=== PATIENT | male | born 1975 | race Caucasian/White ===

== ENCOUNTER 2020-11-29 15:58 | Emergency (ER) | payer BC, SELFPAY ==
--- OUTSIDE RECORDS SUMMARY | 2020-11-29 16:01 | XMS REPORT | Continuity of Care Document ---
:1975 Author Organization [facility] t Address [address] [place] [address] Care Team Providers Name Role Phone Yahaira MENDEZ Attending Clinician Unavailable Bandar MORRIS Admitting Clinician Unavailable Problems Condition Condition Condition Status Onset Resolution Last Treating Co mments Source Name Details Category Date Date Treatment Clinician Date Peritonsil Peritonsil Disease Active 2019-[address] [facility] 00 [place] Throat Throat Disease Active 2019-[address] [facility] pain pain [facility]08 [facility] 00 [place] Fever Fever Disease Active 2020-[address] [facility] [address] [facility] - 00:[facility]: [facility] 00 [place] Allergies, Adverse Reactions, Alerts This patient has no known allergies or adverse reactions. Social History Social Habit Start Date Stop Date Quantity Comments Source Sex Assigned At [facility] History of tobacco Cigarette Smoker [facility] Cigarettes smoked 2019-07-31 2019-07-[address] [facility] - current (pack per 00:00:00 00:00:00 [facility] Center day) - Reported Cigarette 2019-07-31 2019-07-[address] [facility] - pack-years 00:00:00 00:00:00 [facility] Tobacco use and 2019-07-31 2019-07-[address] [facility] Carisa kes - exposure 00:00:00 00:00:00 [facility] Alcohol intake 2019-07-31 2019-07-31 [facility] History SDOH 2019-07-30 2019-07-[address] [facility] - Alcohol Std Drinks 00:00:00 00:00:00 [facility] Center History [facility] 2019-07-30 2019-07-[address] [facility] - Alcohol Binge 00:00:00 00:00:[address] [facility] 2019-07-30 2019-07-[address] [facility] - Alcohol Frequency 00:00:00 00:00:00 [facility] Center Smoking Status Start Date Stop Date Source Current every day smoker 2019-07-31 00:00:[address] [facility] - [facility] Medications This patient has no known medications. Immunizations Ordered Immunization Filled Immunization Date Status Commen ts Source Name Name Influenza Four-QIV 2019-07-[address] [facility] - PF 3YR+ 00:00:00 [facility] Procedures This patient has no known procedures. Plan of Care Planned Activity Planned Date Details Comments Source Future Scheduled 2020-03-23 INFLUENZA VACCINE (#1) [facility] Test 00:00:00 [code = INFLUENZA Medical Ce nter VACCINE (#1)] Future Scheduled [address] [facility] Test 00:00:00 (procedure) [code = [facility] [id number]] Future Scheduled [address] [facility] - Test 00:00:00 0-64 YRS (1 of 1 - Medical C enter PPSV23) [code = PNEUMOCOCCAL VACCINE 0-64 YRS (1 of 1 - PPSV23)] Results Test Description Test Time Test Comments Results Result Comments Source TISSUE EXAM 2019-08-05 Surgical Pathology 17:51:00 Report Case: [id number] Authorizing Provider: Saman Gibbs Collected: 07/31/2019939 MD Narayan Ordering Location: [facility] Received: 07/31/2019 0945 SERVICES Pathologist: Phill Hills MD Specimens: A) - Tonsil, Right, right tonsil B) - Tooth, left medial incisor A. TONSIL, RIGHT, EXCISIONAL BIOPSY:- REACTIVE LYMPHOID HYPERPLASIA WITH FOCAL CRYPTITIS- NO MALIGNANCY IDENTIFIED (SEE COMMENT)- CONCURRENT FLOW STUDIES ([id number] [id number]) SHOW NO ABERRANT T LYMPHOCYTE POPULATION OR MONOTYPIC B LYMPHOCYTE POPULATIONB. ORAL CAVITY, LEFT, TOOTH: - INTACT INCISOR IDENTIFIED (GROSS IDENTIFICATION ONLY) Signing Pathologist Direct Phone Line: [phone] arturo signed by Phill Hills MD on 08/05/2019 at 5:51 PMClinical correlation is recommended.[id number], [id number] mass A. Right tonsil. B. Tooth, left medial incisorA. Received fresh for frozen section examination labeled with the same patient's information and "right tonsil" is a 1.2 gm, 2.2 x 1.7 x 0.5 cm portion of tonsil. The external surface is pink-guerrero and intact. One side shows a wrinkled lobulated unremarkable surface. Touch preparations were performed and a portion of specimen was sent for flow cytometry and the remaining specimen is submitted entirely for permanent microscopic examination in one cassette (A1). MH/plB. Received fresh labeled with the patient's name, accession number and "tooth" is an intact yellow-guerrero incisor measuring 1.7 x 0.6 x 0.4 cm. A gross photograph is taken. No sections are submitted - gross only. CG/ew Performed.[facility], Department of Pathology, [address] [place] [address], [facility], [facility], [address] [place] [address], [facility], [facility], [address] [place] [address], BLOOD CULTURE 2019-08-04 14:00:00 Test Item Value Reference Range Interpretation Comme nts CULTURE (BEAKER) (test code = 1095) No growth in 5 days BLOOD [id number] 14:00:00 Test Item Value Reference Range Interpretation Comments CULTURE (BEAKER) (test No growth in 5 days code = 1095) FLOW CYTOMETRY [id number] 21:41:00 Test Item Value Reference Range Interpretation Comments FLOW CYTOMETRY RESULT See Separate Report POINTER (BEAKER) (test code = 2758) FLOW CYTOMETRY AP CASE # [id number] (BEAKER) (test code = 2759) FLOW [id number] 16:32:00Flow Cytometry Report Case: [id number] Authorizing Provider: Saman Gibbs Collected: 07/31/2019 0940 MD Narayan OrderingLocation: [facility] PERIOPERATIVE Received: 07/31/2019 1055 SERVICES Pathologist: Zachery Arango MD Specimen: Other TONSIL, TONSILLECTOMY, FLOW CYTOMETRY:- NO ABERRANT T LYMPHOCYTE POPULATION-NO MONOTYPIC B LYMPHOCYTE POPULATION [id number] year old man with no significant PMH p/w 3 days of sore throat and fevers associated with a R sided peritonsillar abscess TonsilCD8, surface-kappa, CD56, surface-lambda, CD5, CD19, CD10, CD3, CD20, CD4, [id number] Viability: 84.1% Number of Events Acquired: 084010 The following populations are identified: Lymphocytes: Bright CD45+ lymphocytes comprise 91.7% of total cells. T cells show a CD4:CD8 ratio of 5.0 and normal expression ofthe huber T cell antigens CD3 and CD5. B cells are polytypic with a kappa:lambda ratio of 1.5. Myeloid/monocytic populations: As identified by CD45 and light scatter characteristics, granulocytes comprise 1.6% of total cells, and monocytes comprise 1.3% of total cells.The remaining events analyzed represent nonviable cells, non-hematolymphoid cells, and debris.These tests were developed and their performance characteristics determined by [facility] They have not been cleared or approved by the U.S. Food and Drug Administration. The FDA has determined that such clearance or approval is not necessary. It should not be regarded as investigational or for research. This laboratory is certified under the Clinical Laboratory Improvement Amendments of 1988 ("CLIA") as qualified to perform high-complexity clinical testing.[facility], Department of Pathology, [address] [place] [address], [facility], Department of [facility], [address] [place] [address], KET W/PLT COUNT & AUTO [id number] 14:37:00 Test Item Value Reference Range Interpretation Comments WHITE BLOOD CELL COUNT (BEAKER) 16.6 K/ L 3.5-10.5 H (test code = 775) RED BLOOD CELL COUNT (BEAKER) 3.90 M/ L 4.63-6.08 L (test code = 761) HEMOGLOBIN (BEAKER) (test code = 12.8 GM/DL 13.7-17.5 L 410) HEMATOCRIT (BEAKER) (test code = 35.7 % 40.1-51.0 L 411) MEAN CORPUSCULAR VOLUME (BEAKER) 91.5 fL 79.0-92.2 (test code = 753) MEAN CORPUSCULAR HEMOGLOBIN 32.8 pg 25.7-32.2 H (BEAKER) (test code = 751) MEAN CORPUSCULAR HEMOGLOBIN CONC 35.9 GM/DL 32.3-36.5 (BEAKER) (test code = 752) RED CELL DISTRIBUTION WIDTH 13.2 % 11.6-14.4 (BEAKER) (test code = 412) PLATELET COUNT (BEAKER) (test 239 K/CU MM 150-450 code = 756) MEAN PLATELET VOLUME (BEAKER) 9.5 fL 9.4-12.4 (test code = 754) NUCLEATED RED BLOOD CELLS 0 /100 WBC 0-0 (BEAKER) (test code = 413) NEUTROPHILS RELATIVE PERCENT 79 % (BEAKER) (test code = 429) LYMPHOCYTES RELATIVE PERCENT 12 % (BEAKER) (test code = 430) MONOCYTES RELATIVE PERCENT 7 % (BEAKER) (test code = 431) EOSINOPHILS RELATIVE PERCENT 1 % (BEAKER) (test code = 432) BASOPHILS RELATIVE PERCENT 0 % (BEAKER) (test code = 437) NEUTROPHILS ABSOLUTE COUNT 13.09 K/ L 1.78-5.38 H (BEAKER) (test code = 670) LYMPHOCYTES ABSOLUTE COUNT 1.99 K/ L 1.32-3.57 (BEAKER) (test code = 414) MONOCYTES ABSOLUTE COUNT (BEAKER) 1.09 K/ L 0.30-0.82 H (test code = 415) EOSINOPHILS ABSOLUTE COUNT 0.23 K/ L 0.04-0.54 (BEAKER) (test code = 416) BASOPHILS ABSOLUTE COUNT (BEAKER) 0.05 K/ L 0.01-0.08 (test code = 417) IMMATURE GRANULOCYTES-RELATIVE 1 % 0-1 PERCENT (BEAKER) (test code = 2801) [id number] 05:23:00 Test Item Value Reference Range Interpretation Comments MAGNESIUM (BEAKER) (test code = 1.9 mg/dL 1.6-2.6 627) BASIC METABOLIC [id number] 05:23:00 Test Item Value Reference Range Interpretation Comments SODIUM (BEAKER) (test 140 meq/L 136-145 code = 381) POTASSIUM (BEAKER) 3.9 meq/L 3.5-5.1 (test code = 379) CHLORIDE (BEAKER) 112 meq/L 98-107 H (test code = 382) CO2 (BEAKER) (test 21 meq/L 22-29 L code = 355) BLOOD UREA NITROGEN 15 mg/dL 7-21 (BEAKER) (test code = 354) CREATININE (BEAKER) 0.80 mg/dL 0.57-1.25 (test code = 358) GLUCOSE RANDOM 100 mg/dL 70-105 (BEAKER) (test code = 652) CALCIUM (BEAKER) 8.4 mg/dL 8.4-10.2 (test code = 697) EGFR (BEAKER) (test INSUFFIC IENT CLINICAL code = 1092) DATA TO CALCULA TE ESTIMATED GFR. BLOOD GAS, [id number] 12:55:00 Test Item Value Reference Range Interpretation Comments PH VENOUS (BEAKER) (test code = 7.41 7.32-7.42 701) PCO2 VENOUS (BEAKER) (test code = 34 mmHg 41-51 L 755) PO2 VENOUS (BEAKER) (test code = 48 mmHg 25-40 H 702) O2 SATURATION VENOUS (BEAKER) 81.5 % 40.0-70.0 H (test code = 703) HCO3 VENOUS (BEAKER) (test code = 21 mmol/L 21-29 705) BASE EXCESS VENOUS (BEAKER) (test -2.4 mmol/L -2.0-3.0 L code = 704) PATIENT TEMPERATURE (BEAKER) 38.3 C (test code = 1818) FIO2 (BEAKER) (test code = 1819) 21.0 % LACTIC ACID, [id number] 12:30:00 Test Item Value Reference Range Interpretation Comments LACTATE BLOOD VENOUS 1.3 mmol/L 0.5-2.2 Specime n slightly (2) (BEAKER) (test hemolyzed code = 2872) (CELLAVISION MANUAL DIFF)2019-07-30 11:48:00 Test Item Value Reference Range Interpretation Comments NEUTROPHILS - REL 93 % (CELLAVISION)(BEAKER) (test code = 2816) LYMPHOCYTES - REL 3 % (CELLAVISION)(BEAKER) (test code = 2817) MONOCYTES - REL 2 % (CELLAVISION)(BEAKER) (test code = 2818) BANDS - REL (CELLAVISION)(BEAKER) 2 % 0-10 (test code = 2826) NEUTROPHILS - ABS 21.67 K/ul 1.78-5.38 H (CELLAVISION)(BEAKER) (test code = 2830) LYMPHOCYTES - ABS 0.70 K/ul 1.32-3.57 L (CELLAVISION)(BEAKER) (test code = 2831) MONOCYTES - ABS 0.47 K/uL 0.30-0.82 (CELLAVISION)(BEAKER) (test code = 2832) BANDS - ABS (CELLAVISION)(BEAKER) 0.47 K/uL 0.00-0.80 (test code = 2840) TOTAL COUNTED (BEAKER) (test code 100 = 1351) WBC MORPHOLOGY (BEAKER) (test code Normal = 487) PLT MORPHOLOGY (BEAKER) (test code Normal = 486) ANISOCYTOSIS (BEAKER) (test code = 1+ few 961) POIKILOCYTES (BEAKER) (test code = 1+ few 966) ARTIFACT (CELLAVISION)(BEAKER) Present (test code = 3432) PLATELET CONCENTRATION Adequate (CELLAVISION)(BEAKER) (test code = 3438) Received comment: User comments: Slide comments:BASIC METABOLIC [id number] 06:24:00 Test Item Value Reference Range Interpretation Comments SODIUM (BEAKER) (test 136 meq/L 136-145 code = 381) POTASSIUM (BEAKER) 4.7 meq/L 3.5-5.1 Specimen slightly (test code = 379) hemolyzed CHLORIDE (BEAKER) 106 meq/L 98-107 (test code = 382) CO2 (BEAKER) (test 21 meq/L 22-29 L code = 355) BLOOD UREA NITROGEN 11 mg/dL 7-21 (BEAKER) (test code = 354) CREATININE (BEAKER) 0.84 mg/dL 0.57-1.25 Specimen slightly (test code = 358) hemolyzed GLUCOSE RANDOM 159 mg/dL 70-105 H (BEAKER) (test code = 652) CALCIUM (BEAKER) 9.5 mg/dL 8.4-10.2 (test code = 697) EGFR (BEAKER) (test INSUFFIC IENT CLINICAL code = 1092) DATA TO CALCULA TE ESTIMATED GFR. [id number] 06:06:00 Test Item Value Reference Range Interpretation Comments MAGNESIUM (BEAKER) 1.9 mg/dL 1.6-2.6 Specimen slightly (test code = 627) hemolyzed PROTHROMBIN [id number] 04:38:00 Test Item Value Reference Range Interpretation Comments PROTIME (BEAKER) (test code = 14.1 seconds 11.9-14.2 759) INR (BEAKER) (test code = 370) 1.1 <=5.9 Effective 12/18/2018: PT Reference Range ChangeNew: 11.9-14.2 Previous: 11.7- 14.7RECOMMENDED COUMADIN/WARFARIN INR THERAPY RANGESSTANDARD DOSE: 2.0-3.0 Includes: PROPHYLAXIS for venous thrombosis, systemic embolization; TREATMENT for venous thrombosis and/or pulmonary embolus.HIGH RISK: Target INR is2.5-3.5 for patients wiht mechanical heart valves.CBC W/PLT COUNT & AUTO [id number] 04:35:00 Test Item Value Reference Range Interpretation Comments WHITE BLOOD CELL COUNT (BEAKER) 23.3 K/ L 3.5-10.5 H (test code = 775) RED BLOOD CELL COUNT (BEAKER) 4.35 M/ L 4.63-6.08 L (test code = 761) HEMOGLOBIN (BEAKER) (test code = 14.2 GM/DL 13.7-17.5 410) HEMATOCRIT (BEAKER) (test code = 39.8 % 40.1-51.0 L 411) MEAN CORPUSCULAR VOLUME (BEAKER) 91.5 fL 79.0-92.2 (test code = 753) MEAN CORPUSCULAR HEMOGLOBIN 32.6 pg 25.7-32.2 H (BEAKER) (test code = 751) MEAN CORPUSCULAR HEMOGLOBIN CONC 35.7 GM/DL 32.3-36.5 (BEAKER) (test code = 752) RED CELL DISTRIBUTION WIDTH 12.8 % 11.6-14.4 (BEAKER) (test code = 412) PLATELET COUNT (BEAKER) (test 269 K/CU MM 150-450 code = 756) MEAN PLATELET VOLUME (BEAKER) 9.7 fL 9.4-12.4 (test code = 754) NUCLEATED RED BLOOD CELLS 0 /100 WBC 0-0 (BEAKER) (test code = 413)
--- NOTE | 2020-11-29 17:30 | RAD REPORT ---
EXAM DESCRIPTION: CT - Head Brain Wo Cont - 11/29/2020 5:22 pm CLINICAL HISTORY: PAIN Headache, drowsiness COMPARISON: No comparisons TECHNIQUE: All CT scans are performed using dose optimization technique as appropriate and may inclu de automated exposure control or mA/KV adjustment according to patient size. FINDINGS: No intracranial hemorrhage, hydrocephalus or extra-axial fluid collection.No areas of brai n edema or evidence of midline shift. The paranasal sinuses and mastoids are clear. The calvarium is intact. IMPRESSION: No acute intracranial abnormality.
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
[2020-11-29 20:21] VITALS: TEMP 98.5
[2020-11-29 20:23] VITALS: BP 125/85; O2SAT 98
--- NOTE | 2020-12-01 09:45 | RAD REPORT ---
EXAM DESCRIPTION: RAD - Clavicle Left - 11/29/2020 5:46 pm CLINICAL HISTORY: PAIN COMPARISON: None FINDINGS: Left clavicle and left shoulder- multiple projections are submitted. A subtle lucency is seen in the scapula along the scapular spine. This is favored to represent artifa ct rather than fracture, however correlation with point tenderness along the superior margin scapula would be suggested. Elsewhere, no definitive evidence of fracture seen.
== END 2020-11-29 20:03 | disposition home or self-care (01) ==
LOC: ER 15:58
DX: L03.114 Cellulitis of left upper limb (principal); S43.492A Other sprain of left shoulder joint, initial encounter; Z88.0 Allergy status to penicillin
CPT/HCPCS: 70450; 99283